=== PATIENT | female | born 1965 | race Caucasian/White ===

== ENCOUNTER 2017-04-20 13:15 | Emergency (ER) | payer MEDICAID | END 2017-04-20 14:57 | disposition home or self-care (01) | LOC: FTE 13:15 | DX: J01.90 Acute sinusitis, unspecified (principal); J06.9 Acute upper respiratory infection, unspecified; I10 Essential (primary) hypertension; E11.9 Type 2 diabetes mellitus without complications | CPT/HCPCS: 99284; Z7502 ==